=== PATIENT | male | born 1960 | race Caucasian/White ===

== ENCOUNTER 2017-09-10 17:34 | Emergency (ER) | payer OTHER ==
[~2017-09-10 17:34] MED LIST: AMOX875T PO; ASPI-516 CHEW; FLUT50SP EACH NARE; IBUP1TAB7 PO; IPRA0.06 EACH NARE; PRIL20CA9 PO
[2017-09-10] MEDS ORDERED: TETANUS/DIPHTHERIA TOXOID ADULT 0.5 ML VIAL IM ONE (18:30)
[2017-09-10] MEDS ORDERED: ATEN25TA PO (18:33)
[2017-09-10] MEDS ORDERED: ASPI81CH6 CHEW (18:33)
--- NOTE | 2017-09-10 18:52 | PD ---
HPI Chief Complaint: Exposure to Blood/Body Fluids Time Seen by Provider: 18:06 Travel History International Travel<30 days: No Contact w/Intl Traveler<30days: No Traveled to known affect area: No History of Present Illness HPI 56-year-old male that presents to the ED for evaluation of needles composure. 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 Per patient he went about less than half centimeter. Denies any bleeding from it. No other injuries reported. Per patient he is up-to-date with his hepatitis as far as he knows. Unclear if tetanus. Has no allergies to medication. No other medical issues. No pain. Injury occurred less than an hour ago. This is a worker's comp. [facility] Past Medical History Atrial Fibrillation: Yes (cardiac ablasion) Cardiovascular Problems: Yes (afib) Past Surgical History Cardiac Surgery: Yes (ablasion) Social History Alcohol Use: Yes Tobacco Use: No Substance Use: No Allergies-Medications (Allergen,Severity, Reaction): Uncoded Allergies: NKDA (Allergy, Severe, 04/02/12) Reported Meds & Prescriptions Reported Meds & Active Scripts Active Reported Atenolol 25 Mg Tab 25 Mg PO DAILY Aspirin Low Dose (Aspirin) 81 Mg Chew 81 Mg CHEW DAILY Review of Systems Except as stated in HPI: all other systems reviewed are Neg Physical Exam Narrative GENERAL: SKIN: Warm and dry. HEAD: Atraumatic. Normocephalic. EYES: Pupils equal and round. No scleral icterus. No injection or drainage. ENT: No nasal bleeding or discharge. Mucous membranes pink and moist. NECK: Trachea midline. No JVD. CARDIOVASCULAR: Regular rate and rhythm. RESPIRATORY: No accessory muscle use. Clear to auscultation. Breath sounds equal bilaterally. GASTROINTESTINAL: Abdomen soft, non-tender, nondistended. Hepatic and splenic margins not palpable. MUSCULOSKELETAL: Extremities without clubbing, cyanosis, or edema. No obvious deformities. Full range of motion of the upper and lower extremities bilaterally. Patient has a very small puncture to the right index finger. NEUROLOGICAL: Awake and alert. No obvious cranial nerve deficits. Motor grossly within normal limits. Five out of 5 muscle strength in the arms and legs. Normal speech. PSYCHIATRIC: Appropriate mood and affect; insight and judgment normal. Data Data Orders Orders Tetanus/Diphtheria Tox Adult (Tetanus/Di (09/10/17 18:30) Ed Discharge Order (09/10/17 18:47) MDM Medical Decision Making Medical Screen Exam Complete: Yes Emergency Medical Condition: Yes Medical Record Reviewed: Yes Differential Diagnosis Exposure versus normal exam versus exposure prophylaxis Narrative Course 56-year-old male that presents to the ED for evaluation of needle exposure. Patient was properly examined and was found to have signs and symptoms consistent with needle exposure. I was able to speak with the doctor who is taking care of the source blood as patient is currently still in the ED and per Dr. Oliva patient does not have any sign of hepatitis or HIV at this time. At this time and does not recommend any PEP. We were able to obtain blood from the source blood to get tested for HIV and hepatitis and patient will be called with the results if positive he will be started on prophylaxis. Otherwise I do recommend follow with employee med for further evaluation. Patient was given tetanus booster. Patient agrees with plan. All questions answered to the best of my ability. See ED worsening symptoms. Low risk exposure counseled to the patient. Diagnosis Primary Impression: Employee exposure to blood Referrals: Employ Med Patient Instructions: General Instructions Additional Instructions: Follow with employee med. See ED if worsening symptoms. Med/Other Pt SpecificInfo: No Change to Meds Disposition: 01 DISCHARGE HOME Condition: Darek Mason Sep 10, 2017 18:52
== END 2017-09-10 19:06 | disposition home or self-care (01) ==
LOC: NEPK 17:34
DX: S61.230A Puncture wound without foreign body of right index finger without damage to nail, initial encounter (principal); W46.1XXA Contact with contaminated hypodermic needle, initial encounter; Y93.F9 Activity, other caregiving; Y99.0 Civilian activity done for income or pay; Z23 Encounter for immunization
CPT/HCPCS: 90471; 90714